=== PATIENT | male | born 1970 | race Hispanic/Latino ===

== ENCOUNTER 2021-09-10 17:54 | Emergency (ER) | payer SELFPAY ==
[~2021-09-10 17:54] MED LIST: Iopamidol 370 76% 100 ML VIAL ONE
[2021-09-10] MEDS ORDERED: Ketorolac Tromethamine 30 MG/ML VIAL ONE (18:36)
[2021-09-10] MEDS ORDERED: Morphine 4 MG/ML VIAL ONE (18:36)
[2021-09-10 18:43] LABS: Bilirubin Negative (Negative); Blood, Urine Trace (Negative); Glucose, Urine (Dipstick) Negative (Negative); Ketone, Urine Negative (Negative); Leukocyte Negative (Negative); Nitrite Negative (Negative); Protein, Urine (Dipstick) Negative (Neg-Trace); Urobilinogen 0.2 mg/dL (Less than 2)
[2021-09-10 19:07] LABS: Clarity Hazy (Clear); Specific Gravity, Urine 1.005 (1.002-1.036)
[2021-09-10 19:08] LABS: Bacteria/HPF Rare-Few HPF (None Seen); RBC/HPF 0-3 HPF (0-3); Squamous Epithelial 0-3 HPF (0-3); WBC/HPF None Seen HPF (0-3)
[2021-09-10 19:16] LABS: #Basophils 0.1 thou/uL (0.0-0.2); #Eosinphils 0.2 thou/uL (0.0-0.7); #Lymphocytes 4.9 thou/uL (1.20-3.40); #Monocytes 0.6 thou/uL (0.11-0.59); #Neutrophils 5.7 thou/uL (1.40-6.50); %Basophils 0.8 % (0.0-1.0); %Eosinophils 1.4 % (0.0-10.0); %Lymphocytes 42.9 % (21.0-51.0); %Monocytes 5.3 % (0.0-10.0); %Neutrophils 49.6 % (42.0-75.0); Mean Corpuscular HGB CONC 32.1 g/dL (32.0-36.0); Mean Corpuscular Hemoglobin 29.9 pg (27.0-31.0); Mean Corpuscular Volume 93.3 fL (78.0-98.0); Platelet Count 293 thou/uL (130-400); RBC Distribution Width 12.6 % (11.5-14.5); White Blood Cell (WBC) Count 11.4 thou/uL (4.8-10.8)
[2021-09-10 19:35] LABS: ALT (SGPT) 21 U/L (8-55); AST (SGOT) 28 U/L (5-34); Albumin 4.3 g/dL (3.5-5.0); Alkaline Phosphatase 89 U/L (40-110); Anion Gap 19 mmol/L (10-20); BUN (Urea Nitrogen) 6 mg/dL (8.9-20.6); Bilirubin, Total 0.4 mg/dL (0.2-1.2); Calc. Creatinine Clearance 0 mL/min (70-130); Calcium 8.8 mg/dL (7.8-10.44); Carbon Dioxide 20 mmol/L (22-29); Chloride 106 mmol/L (98-107); Globulin 3.1 g/dL (2.4-3.5); Glucose 80 mg/dL (70-105); Lipase 40 U/L (8-78); Protein, Total 7.4 g/dL (6.0-8.3); Sodium 141 mmol/L (136-145)
[2021-09-12 11:54] LABS: Chlam.trachomatis by PCR,Urine Not Detected (NotDetected)
== END 2021-09-10 19:33 | disposition short-term general hospital (02) ==
LOC: MADERS 17:54
DX: N50.812 Left testicular pain (principal); F17.210 Nicotine dependence, cigarettes, uncomplicated
CPT/HCPCS: 36415; 74177; 80053; 81003; 81015; 83605; 83690; 85025; 87491; 87591; 96374; 96375; J1885; J2270; Q9967

== ENCOUNTER 2021-10-18 11:37 | Emergency (ER) | payer SELFPAY ==
[2021-10-18] MEDS ORDERED: Ibuprofen 400 MG TAB ONE (13:19)
== END 2021-10-18 13:30 | disposition home or self-care (01) ==
LOC: MADERS 11:37
DX: G89.29 Other chronic pain (principal); M54.50 Low back pain, unspecified; M79.605 Pain in left leg
CPT/HCPCS: 99283

== ENCOUNTER 2021-11-17 21:37 | Emergency (ER) | payer SELFPAY ==
[~2021-11-17 21:37] MED LIST changes: +Dextrose 5 %-0.45 % NaCl 1000 ml Bag ONE; -Iopamidol 370 76% 100 ML VIAL ONE; +Iopamidol 370 76% 125 ML VIAL FS ONE; +Sodium Chloride 0.9% 100 ML BAG ONE
[2021-11-17] MEDS ORDERED: Morphine 4 MG/ML VIAL ONE (22:19)
[2021-11-17 22:21] LABS: #Basophils 0.2 thou/uL (0.0-0.2); #Eosinphils 0.1 thou/uL (0.0-0.7); #Lymphocytes 3.4 thou/uL (1.20-3.40); #Monocytes 0.8 thou/uL (0.11-0.59); #Neutrophils 5.5 thou/uL (1.40-6.50); %Basophils 1.6 % (0.0-1.0); %Eosinophils 0.8 % (0.0-10.0); %Lymphocytes 34.4 % (21.0-51.0); %Neutrophils 55.3 % (42.0-75.0); Hemoglobin 14.5 g/dL (14.0-18.0); Mean Corpuscular HGB CONC 33.6 g/dL (32.0-36.0); Mean Corpuscular Hemoglobin 32.2 pg (27.0-31.0); Mean Corpuscular Volume 95.9 fL (78.0-98.0); Mean Platelet Volume 6.5 fL (7.4-10.4); Platelet Count 318 thou/uL (130-400); RBC Distribution Width 12.1 % (11.5-14.5); Red Blood Cell (RBC) Count 4.51 mill/uL (4.70-6.10)
[2021-11-17 22:24] LABS: Bilirubin Negative (Negative); Blood, Urine Negative (Negative); Clarity Clear (Clear); Glucose, Urine (Dipstick) Negative (Negative); Ketone, Urine Negative (Negative); Leukocyte Negative (Negative); Nitrite Negative (Negative); Protein, Urine (Dipstick) Negative (Neg-Trace); Urobilinogen 0.2 mg/dL (Less than 2)
[2021-11-17 22:27] LABS: Specific Gravity, Urine 1.005 (1.002-1.036)
[2021-11-17 22:35] LABS: Amphetamine Not Detected (NotDetected); Barbiturates Screen Not Detected (NotDetected); Benzodiazepine Screen Not Detected (NotDetected); Cocaine Metabolite Screen Not Detected (NotDetected); Medtox Control Line Valid? VALID (VALID); Methadone Not Detected (NotDetected); Methamphetamine Not Detected (NotDetected); Opiate Screen Not Detected (NotDetected); Oxycodone Screen Not Detected (NotDetected); Phencyclidine (PCP) Not Detected (NotDetected); THC/Cannabinoid Screen Not Detected (NotDetected); Tricyclic Screen Not Detected (NotDetected)
[2021-11-17 22:38] LABS: ALT (SGPT) 45 U/L (8-55); AST (SGOT) 50 U/L (5-34); Albumin 4.3 g/dL (3.5-5.0); Alkaline Phosphatase 120 U/L (40-110); Anion Gap 19 mmol/L (10-20); BUN (Urea Nitrogen) 5 mg/dL (8.9-20.6); Bilirubin, Total 0.4 mg/dL (0.2-1.2); Calc. Creatinine Clearance 0 mL/min (70-130); Carbon Dioxide 20 mmol/L (22-29); Chloride 105 mmol/L (98-107); Estimated GFR 110; Globulin 3.1 g/dL (2.4-3.5); Glucose 115 mg/dL (70-105); Lipase 52 U/L (8-78); Magnesium 2.2 mg/dL (1.6-2.6); Potassium 3.6 mmol/L (3.5-5.1); Protein, Total 7.4 g/dL (6.0-8.3); Sodium 140 mmol/L (136-145)
[2021-11-17 22:40] LABS: Acetaminophen Less than 10.0 mcg/mL (10.0-30.0); Alcohol 305 mg/dL (Less than 10); Salicylate Less than 8.0 mg/dL (15.0-30.0)
[2021-11-17 22:41] LABS: Base Excess-Venous -1.7 mmol/L (-2.0 to 3.0); Bicarbonate (HCO3v) 20.7 mmol/L (22.0-28.0); CO2 Tension (PvCO2) 29.1 mmHg (42.0-51.0); Calcium, Ionized 0.99 mmol/L (1.15-1.33); Chloride 110 mmol/L (98-107); Hemoglobin - Calc 15.8 g/dL (14.0-18.0); Potassium 3.6 mmol/L (3.5-5.1); Sodium 143 mmol/L (138-145); T. Carbon Dioxide 21.6 mmol/L (22.0-28.0); vO2 Saturation-calc 99.6 % (60.0-85.0)
[2021-11-17] MEDS ORDERED: Midazolam HCl 2 mg/2 ml Vial ONE (22:49)
[2021-11-18] MEDS ORDERED: Ketorolac Tromethamine 30 MG/ML VIAL ONE (00:32)
[2021-11-18] MEDS ORDERED: Thiamine HCl 200 MG/2 ML VIAL ONE (00:32)
[2021-11-18] MEDS ORDERED: Multivit, Adult Inj 10 ML VIAL ONE (00:32)
[2021-11-18 00:47] LABS: Lactic Acid 1.5 mmol/L (0.5-2.2)
== END 2021-11-18 04:07 | disposition home or self-care (01) ==
LOC: MADERS 21:37
DX: F10.129 Alcohol abuse with intoxication, unspecified (principal); E86.0 Dehydration; G89.29 Other chronic pain; R51.9 Headache, unspecified; M54.2 Cervicalgia; R07.9 Chest pain, unspecified; R10.9 Unspecified abdominal pain; M54.9 Dorsalgia, unspecified; N50.812 Left testicular pain; M79.605 Pain in left leg; Y90.8 Blood alcohol level of 240 mg/100 ml or more; Z87.442 Personal history of urinary calculi
CPT/HCPCS: 70450; 71275; 74174; 74176; 80053; 80306; 80307; 81003; 82330; 82803; 83605; 83690; 83735; 84443; 84484; 85014; 85025; 93005; 94760; 96365; 96366; 96375; J1885; J2250; J2270; J3411; J7042; Q9967